=== PATIENT | female | born 1995 | race Caucasian/White ===

== ENCOUNTER → 2020-01-23 16:12 | Outpatient (CLI) | payer OTHER, SELFPAY | PROVIDERS: PCP Family Medicine; Referring Provider Family Medicine; Visit Provider Family Medicine | DX: M23.91 Unspecified internal derangement of right knee (principal); Z53.9 Procedure and treatment not carried out, unspecified reason ==

== ENCOUNTER → 2020-01-30 16:31 | Outpatient (CLI) | payer OTHER, SELFPAY ==
--- NOTE | 2020-01-30 | DI.MRI.S_ITS ---
PROCEDURE: MR KNEE RT WO CON INDICATIONS: Unspecified internal derangement of right knee TECHNIQUE: Noncontrast sagittal PD fast spin echo and T2 fast spin echo with fat saturation, sagittal 3-D FLASH with fat saturation; coronal T1 spin echo and PD fast spin echo with fat saturation, and axial PD fast spin echo with fat saturation through the knee. COMPARISON: None. FINDINGS: Image quality: Excellent. Menisci: Linear vertically oriented high signal intensity traverses the medial meniscal body and posterior horn, demonstrating superior and inferior articular surface extension, indicating oblique tearing. There is detachment of the posterior horn medial meniscus. Cruciate ligaments: The anterior cruciate ligament is nearly completely absent, consistent with chronic high-grade tearing. Posterior cruciate ligament is intact. Medial structures: The medial collateral ligament appears intact. Visualized portions of the pes anserinus tendons appear normal. No abnormal bursal fluid. Lateral structures: The lateral collateral ligament, long and short heads of the biceps femoris tendon appear intact. The popliteus tendon appears normal. Iliotibial band appears normal. Anterior structures: The quadriceps and patellar tendons appear intact. Patellar alignment is normal. No femoral trochlear dysplasia or ventral trochlear prominence. No edema in the infrapatellar fat pad. Bones and cartilage: No bone marrow contusions or fractures. There is mild tricompartmental periarticular osteophyte formation. Moderate articular cartilage loss diffusely overlies the weight-bearing aspects of the medial femoral condyle and medial tibial plateau. Moderate articular cartilage loss diffusely overlies the weight-bearing aspects of the lateral femoral condyle and lateral tibial plateau. Joint space: There is a small knee joint effusion and a trace Retana's cyst. Normal appearing synovial plicae are incidentally noted. IMPRESSION: 1. Medial meniscal tear. 2. Chronic high-grade anterior cruciate ligament tear. 3. Tricompartmental osteoarthritis with associated articular cartilage loss. 4. Small knee joint effusion and trace Retana's cyst. Dictated by: Pepe Kaba M.D. on 01/31/2020 at 8:09 Approved by: Pepe Kaba M.D. on 01/31/2020 at 8:11
== END ==
PROVIDERS: PCP Family Medicine; Referring Provider Family Medicine; Visit Provider Family Medicine
DX: S83.241A Other tear of medial meniscus, current injury, right knee, initial encounter (principal); S83.511A Sprain of anterior cruciate ligament of right knee, initial encounter; M17.11 Unilateral primary osteoarthritis, right knee; M25.461 Effusion, right knee
CPT/HCPCS: 73721

== ENCOUNTER → 2024-03-12 09:18 | Day surgery (SDC) | payer BC, SELFPAY ==
[2024-03-08 09:39] VITALS: BMI 38.6
[2024-03-12 09:44] VITALS: BP 142/94; PULSE 86; RESP 16; TEMP 36.3; O2SAT 96; BMI 38.6
--- NOTE | 2024-03-12 10:21 | P.HPOB_ITS ---
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 Patient was counseled on 01/27/24 via telehealth ([place] resident) regarding recommendation for excisional procedure via LEEP and patient presents to facility today for procedure as scheduled. Operative consents completed in preoperative area, pt affirms desire to proceed, denies significant interval changes in personal or family health history since time of last encounter. 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 Pap smear of cervix with ASCUS, cannot exclude HGSIL Social History Smoking Status: Current every day smoker Meds Home Medications and Allergies Home Medications Medication Instructions Recorded Confirmed Type sertraline 100 mg tablet 100 mg PO DAILY 12/23/23 03/08/24 History albuterol sulfate 90 mcg/actuation 1 - 2 puff inhalation Q4H PRN 03/08/24 03/12/24 History aerosol inhaler wheezing phentermine 15 mg capsule 15 mg PO DAILY 03/08/24 03/12/24 History Allergies Allergy/AdvReac Type Severity Reaction Status Date / Time No Known Drug Allergies Allergy Unverified 12/23/23 15:15 Review of Systems Review of Systems ROS: Yes All systems reviewed with the patient and are negative except as otherwise documented Exam Vital Signs (past 8 hours): - 03/12/24 09:44 Temperature 97.4 F L Pulse Rate 86 Respiratory Rate 16 Blood Pressure 142/94 H Pulse Oximetry 96 Oxygen Delivery Method Room Air Oxygen Delivery Method Room Air Const General: cooperative, healthy appearing and comfortable Nutritional Appearance: overweight Orientation: alert, awake and oriented x3 Limitations: mental status not altered HENMT Head: normal to inspection Resp Effort & Inspection: normal respiratory effort Cardio Pulses: normal peripheral pulses Other: deferred per shared decision making with patient Skin General: no rashes or lesions noted Neuro General: patient alert, patient awake and patient oriented x3 Extrem General: normal to inspection Psych Mental Status: mental status grossly normal Judgment: judgment good Assessment & Plan Assessment and plan (1) MERYL II (cervical intraepithelial neoplasia II): Status: Acute (2) 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: Status: Acute (3) Pap smear of cervix with ASCUS, cannot exclude HGSIL: Status: Acute Plan 28yo G0 presents for scheduled indicated LEEP secondary to recent CIN2 per colposcopic biopsy, known HR-HPV16+ LEEP pt affirms desire to proceed with procedure as scheduled operative consent completed anticipated postoperative course reviewed anticipate routine outpatient f/u in office 2-4wks as scheduled dispo: to OR Time-Based Coding :: [TOTAL MINUTES] spent with patient and on the chart (including review of chart, obtaining history, exam, reviewing outside data, placing orders, documenting exam and treatment plan, and counseling patient) on [DATE].
--- NOTE | 2024-03-12 10:27 | PM.PREOP ---
Pre-operative Note Interval Note History & Physical reviewed/Exam performed by Physician: Yes Changes to H&P: No H&P completed within 30 days and has changed as indicated here:: 03/12/24 ASA Class (for procedural sedation): II
== END | disposition home or self-care (01) ==
PROVIDERS: PCP Family Medicine; Referring Provider Obstetrics & Gynecology; Visit Provider Obstetrics & Gynecology
DX: R87.611 Atypical squamous cells cannot exclude high grade squamous intraepithelial lesion on cytologic smear of cervix (ASC-H) (principal); R87.810 Cervical high risk human papillomavirus (HPV) DNA test positive; Z53.9 Procedure and treatment not carried out, unspecified reason
CPT/HCPCS: 57460; J1100; J2405; J2704; J3010

== ENCOUNTER 2024-03-19 12:54 | Day surgery (SDC) | payer BC, SELFPAY ==
[2024-03-19] VITALS (7 sets, daily range): BP systolic 118–141; BP diastolic 75–96; PULSE 67–101; RESP 8–20; TEMP 36.2–37.1; O2SAT 94–99; BMI 36.6
--- NOTE | 2024-03-19 | PATH_ITS ---
[facility] Accession Number: [id number] No. of containers..02 Tissue . 01 Material submitted: . PART A: ectocervix - ECTOCERVIX STITCH @ 12 PART B: endocervix - ENDOCERVICAL TOP HAT . 01 Diagnosis: A. ECTOCERVIX, STITCH AT 12: High-grade squamous intraepithelial lesion / MERYL 2-3 with glandular extension present circumferentially in the 12-3, 3-6, 6-9, and 9-12 o'clock quadrants. Patchy regions of low-grade squamous intraepithelial lesion are present circumferentially in the 12-3, 3-6, 6-9, and 9-12 o'clock quadrants. The apparent endocervical margin is negative for dysplasia. Low-grade squamous intraepithelial lesion / MERYL-1 is focally present at the ectocervical margin in the 3-6, 6-9, and 9-12 o'clock quadrants. No invasive tumor identified. . B. ENDOCERVICAL TOP HAT, LEEP BIOPSY: Endocervical tissue; negative for dysplasia or malignancy. [facility] 03/22/2024 1523 Local . 01 Electronically signed: . Francine Lowe MD, Pathologist NPI- [id number] . 01 Gross description: . A. Received in formalin with two patient identifiers and ectocervix stitch at 12, is an oriented fragment of cervix with a suture designating 12 o'clock per the requisition (1.5 cm from 12-6, 1.8 cm from 3-9, and 1.0 cm thick) with mitchell wrinkled ectocervix and a patulous os 0.5 cm in diameter. The endocervical margin is inked orange while the remaining stromal margin is inked blue. The specimen is radially sectioned and submitted entirely as follows: A1: 12-3. A2: 3-6. A3: 6-9. A4: -. B. Received in formalin with two patient identifiers and endocervical top hat, is an unoriented linear fragment of cervix (1.8 x 0.6 x 0.5 cm) with no ectocervix identified. The concave surface is inked black while the convex surface is inked green. The fragment is serially sectioned and submitted entirely in B1-B2. ([id number]) /MRV 03/21/2024 1641 Local . 01 Pathologist provided ICD-10: N87.1, N87.0 . 01 CPT . 098864, 608345 Specimen Comment: A courtesy copy of this report has been sent to Pathology Performed at: [address] [facility] [id number] MD Angelo Rodriguez MD Phone: [phone]
[2024-03-19] MEDS: LACTATED RINGERS 1,000 ML 42 ML IV (13:43)
--- NOTE | 2024-03-19 14:41 | SUR.OPER ---
Lithotomy on padded OR bed, head on pillow, arms secured on padded arm boards at <90 degrees abduction. Legs secured in padded yellow fins stirrups.
[2024-03-19] MEDS: BUPIVACAINE 0.25% (PF) 30 ML, EPINEPHrine 0.15 MG INJ (14:46)
[2024-03-19] MEDS: ACETIC ACID 500 ML IRRIG 20 ML TOP (14:51)
[2024-03-19] MEDS: FERRIC SUBSULFATE 8 ML SOLUTION TOP (14:51)
--- NOTE | 2024-03-19 15:09 | P.OP_ITS ---
Operative Date/Time/Diagnoses Date of procedure: 03/19/24 Time of procedure: 15:09 Pre-op diagnosis: MERYL 2/3 Post-op diagnosis: same Procedure & Clinicians Procedure: LEEP Same procedure as scheduled: Yes Indications: MERYL 2/3 Surgeon: Cara Deluna Click Yes if Unassisted: Yes Anesthesia Type: General Operative Notes Findings: normal external female genitalia perineum and anus without rash or lesion diffuse acetowhite change of SCJ, extension from prior observed lesion at time of office encounter Closure Type: not applicable Specimen(s): other (1) ectocervix, suture at 12 o'clock; 2) endocervical top- hat) Estimated Blood Loss (mL): 1 Procedure in detail: Pt was taken to the operating room, transferred to OR table and anesthesia was induced with placement of LMA. Pt had her legs placed in Sundar stirrups and an exam under anesthesia was performed. The patient was prepped and draped in a sterile fashion.? A time out was performed.? The bladder was emptied via straight catheter in sterile fashion.? A sterile insulated speculum was inserted into the vagina.? The cervix was visualized and grasped anteriorly using an insulated single tooth tenaculum.? Acetic acid was applied copiously to the cervix with delineation of previously described areas of acetowhite change. The ectocervical stroma was circumferentially infiltrated with 0.25% lidocaine with epinephrine for local analgesia and hemostasis followed by administration of paracervical block in standard fashion.?? The large electrocautery loop was selected and the ectocervical areas of acetowhite change were resected.? Additional endocervical top hat resected in the same fashion followed by generous application of rollerball cautery along the entirety of the wound bed.?? The tenaculum was removed and hemostasis was noted at insertion sites.? Monsel?s solution was applied generously and the speculum was removed.? The patient then had her legs taken out of stirrups.? The patient tolerated the procedure well and without difficulty.? The patient was awakened from anesthesia and taken to PACU in stable condition. Complications: none Post-operative Condition: stable Disposition: PACU Plan for aftercare: anticipate dc to home routine outpatient f/u as scheduled
== END 2024-03-19 15:35 | disposition home or self-care (01) ==
PROVIDERS: PCP Family Medicine; Referring Provider Obstetrics & Gynecology; Visit Provider Obstetrics & Gynecology
PROC: 0UBC7ZZ Excision of Cervix, Via Natural or Artificial Opening (ICD-10-PCS; CPT 57522; principal; 2024-03-19 14:45)
DX: N87.1 Moderate cervical dysplasia (principal); R87.810 Cervical high risk human papillomavirus (HPV) DNA test positive
CPT/HCPCS: 57522; 82962; A9270; J0171; J1100; J2405; J2704; J3010